=== PATIENT | female | born 1975 | race Caucasian/White ===

== ENCOUNTER → 2017-05-20 | Outpatient (CLI) | payer BC ==
[~2017-05-20] MED LIST: ASACOL400 MG PO; HYDROCODONE BIT1 T11 PO; NORFLEX100 MG PO; SINGULAIR10 MG PO; SYNTHROID0.1 MG PO; VENTOLIN0.09 MG/AC IH; ZITHROMAX Z PA250 MG PO
[2017-05-20 09:36] LABS: BILIRUBIN NEGATIVE (NEGATIVE); BLOOD 3+ (NEGATIVE); CLARITY SL CLOUDY (CLEAR); COLOR YELLOW (YELLOW); GLUCOSE NEGATIVE (NEGATIVE); KETONE NEGATIVE (NEGATIVE); LEUKO ESTERASE 1+ (NEGATIVE); NITRITE NEGATIVE (NEGATIVE); SPECIFIC GRAVITY <= 1.005 (1.005-1.030); UROBILINOGEN 0.2 E.U./dl (0.2-1.0)
[2017-05-20 10:31] LABS: BACTERIA 2+
== END | disposition home or self-care (01) ==
LOC: LAB 09:15
PROVIDERS: Nurse Practitioner
DX: N20.0 Calculus of kidney (principal)

== ENCOUNTER 2018-02-03 09:01 | Inpatient (IN) | payer BC ==
[~2018-02-03] VITALS: Ht 165.1 cm; Wt 80.9 kg
--- NOTE | ~2018-02-03 | CON ---
[place], [place] REPORT OF CONSULTATION NAME: PRECIOUS JUAREZ UNIT #: [id number] ROOM: 516 DOCTOR: CARMEN LANGLEY MD BIRTHDATE: [birth year] DOS: 02/04/2018 CARDIOLOGY PROGRESS NOTE SUBJECTIVE: The patient was seen today 02/04/2018 in the Cardiology Department just prior to her stress test. She continues to have brief episodes of chest discomfort, but denies any diaphoresis. Review of her laboratory studies showed that her TSH levels are elevated at 25.8. Troponins remain negative. PHYSICAL EXAMINATION: VITAL SIGNS: Today, her pulse is 77 and regular, blood pressure is 102/70. She is afebrile, body mass index is 29.7, and she weighs 80.8 kilograms. NECK: Supple. She has no jugular distention. Carotids are full. LUNGS: Respirations are unlabored. CHEST: Clear. HEART: Has a regular rhythm with an S4 gallop. EXTREMITIES: Showed no edema. IMPRESSION: 1. Atypical chest pain. 2. Episodic diaphoresis. 3. Hypothyroidism with elevated TSH level indicating that she is incompletely replaced. PLAN: We will proceed with an exercise myocardial perfusion study today. I will defer further management of her thyroid replacement to her primary physicians. Certainly, better replacement of her thyroid will aid in her cholesterol control, weight management, etc. I thank the hospitalist physicians for asking our advice regarding her care. CARMEN LANGLEY MD CM:CONSTR:REPORT OF CONSULTATION 1012 02/16/18 0856 interface
--- NOTE | ~2018-02-03 | EKG ---
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
--- NOTE | ~2018-02-03 | EKG ---
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 Electronically Signed On 02-03-2018 21:01:43 PDT by Atrhur Wilhelm MD CM:EKGRPT:ELECTROCARDIOGRAM REPORT 1501 [id number] ROSA FIGUEROA DRAFT REPORT ROSA DOWNING MD
--- NOTE | ~2018-02-03 | EKG ---
[place], [place] ELECTROCARDIOGRAM REPORT NAME: PRECIOUS JUAREZ UNIT #: [id number] ROOM: 516 DOCTOR: CAROLINA DRAFT REPORT BIRTHDATE: [birth year] [facility] Test Date: 2018-02-03 Test Time: 12:43:37 Pat Name: PRECIOUS JUAREZ Department: Room: Gender: F Supervisor Properties: : 1975 Requested By: ROSA DOWNING Order Number: [id number] Reading MD: Arthur Wilhelm MD Measurements Intervals [place] Rate: 63 P: 0 CA: 163 QRS: 34 QRSD: 92 T: 3 QT: 415 QTc: 425 Interpretive Statements Sinus rhythm Nonspecific T abnormalities, anterior leads No change from earlier ECG this date. Electronically Signed On 02-03-2018 20:53:31 PDT by Arthur Wilhelm MD CM:EKGRPT:ELECTROCARDIOGRAM REPORT [id number] 52 ROSA FIGUEROA DRAFT REPORT ROSA DOWNING MD
--- NOTE | ~2018-02-03 | PR ---
[place], [place] PROGRESS NOTE NAME: [id number] UNIT #: [id number] ROOM: 516 DOCTOR: CARMEN LANGLEY MD BIRTHDATE: [birth year] DOS: 02/04/2018 CARDIOLOGY PROGRESS NOTE SUBJECTIVE: The patient was seen today 02/04/2018 in the Cardiology Department just prior to her stress test. She continues to have brief episodes of chest discomfort, but denies any diaphoresis. Review of her laboratory studies showed that her TSH levels are elevated at 25.8. Troponins remain negative. PHYSICAL EXAMINATION: VITAL SIGNS: Today, her pulse is 77 and regular, blood pressure is 102/70. She is afebrile, body mass index is 29.7, and she weighs 80.8 kilograms. NECK: Supple. She has no jugular distention. Carotids are full. LUNGS: Respirations are unlabored. CHEST: Clear. HEART: Has a regular rhythm with an S4 gallop. EXTREMITIES: Showed no edema. IMPRESSION: 1. Atypical chest pain. 2. Episodic diaphoresis. 3. Hypothyroidism with elevated TSH level indicating that she is incompletely replaced. PLAN: We will proceed with an exercise myocardial perfusion study today. I will defer further management of her thyroid replacement to her primary physicians. Certainly, better replacement of her thyroid will aid in her cholesterol control, weight management, etc. I thank the hospitalist physicians for asking our advice regarding her care. CARMEN LANGLEY MD CM:PNTRANS 1012 [id number] CARMEN LANGLEY MD 02/16/18 0858 COCO [email or web address]
[~2018-02-03 09:01] MED LIST changes: -SYNTHROID0.1 MG PO; +Synthroid,Lev150 MCG PO
[2018-02-03] MEDS ORDERED: LIALDA1.2 GM PO (09:04)
[2018-02-03 09:07] VITALS: BP 137/82
[2018-02-03 09:39] LABS: BASO % 0.3 % (0.0-1.0); EOS # 0.1 10*3/uL (0.0-0.4); EOS % 0.9 % (1.0-4.0); HEMATOCRIT 45.3 % (37.0-47.0); HEMOGLOBIN 14.9 g/dl (12.0-16.0); LYMPH # 2.3 10*3/uL (1.3-4.4); LYMPH % 22.1 % (27.0-41.0); MEAN CELL VOLUME 96.4 fl (81.0-99.0); MEAN CORPUSCULAR HGB 31.7 pg (27.0-31.0); MEAN CORPUSCULAR HGB CONC 32.9 g/dl (33.0-37.0); MEAN PLATELET VOLUME 9.6 fl (9.6-12.3); MONO # 0.6 10*3/uL (0.1-1.0); MONO % 5.7 % (3.0-9.0); NEUT # 7.5 10*3/uL (2.3-7.9); NEUT % 70.4 % (47.0-73.0); PLATELET COUNT AUTOMATED 236 10*3/uL (130-400); RED CELL DISTRI WIDTH 12.4 % (0-14.5); WHITE BLOOD COUNT 10.6 10*3/uL (4.8-10.8)
[2018-02-03 09:47] LABS: ACT PARTIAL THROMBO TIME 23.9 SECONDS (20.8-31.5); INTERNATIONAL NORM RATIO 0.9 (2.0-3.5)
[2018-02-03 09:59] LABS: ALBUMIN 3.8 gm/dl (3.1-4.5); BUN 12 mg/dl (7-24); CHLORIDE 104 mmol/L (98-107); CREATININE 0.96 mg/dL (0.55-1.02); SGOT/AST 18 IU/L (3-35); SGPT/ALT 26 U/L (12-78); SODIUM 137 mmol/L (136-145)
[2018-02-03 10:04] LABS: ALKALINE PHOSPHATASE 68 U/L (45-117); TOTAL PROTEIN 7.5 gm/dL (6.4-8.2); TROPONIN I < 0.015 ng/ml (<0.045)
[2018-02-03 10:14] VITALS: BP 133/82
[2018-02-03] MEDS ORDERED: IMODIUM A-D2 M2 PO (11:11)
[2018-02-03] MEDS ORDERED: VICODIN 5-3001 EACH PO (11:13)
[2018-02-03] MEDS ORDERED: ZANAFLEX4 MG PO (11:13)
[2018-02-03] MEDS ORDERED: ZANTAC 150150 MG PO (11:13)
[2018-02-03] MEDS ORDERED: XANAX0.5 MG PO (11:14)
[2018-02-03 12:00] VITALS: BP 114/80
[2018-02-03 16:00] VITALS: BP 121/79
[2018-02-03 20:00] VITALS: BP 113/69
[2018-02-04] VITALS: BP 116/77
[2018-02-04 07:34] LABS: BASO # 0.1 10*3/uL (0.0-0.1); BASO % 0.5 % (0.0-1.0); EOS # 0.2 10*3/uL (0.0-0.4); EOS % 1.5 % (1.0-4.0); HEMOGLOBIN 14.9 g/dl (12.0-16.0); LYMPH # 2.4 10*3/uL (1.3-4.4); MEAN CELL VOLUME 95.8 fl (81.0-99.0); MEAN CORPUSCULAR HGB CONC 32.4 g/dl (33.0-37.0); MEAN PLATELET VOLUME 10.3 fl (9.6-12.3); MONO # 0.6 10*3/uL (0.1-1.0); MONO % 5.7 % (3.0-9.0); NEUT # 6.8 10*3/uL (2.3-7.9); NEUT % 67.9 % (47.0-73.0); PLATELET COUNT AUTOMATED 180 10*3/uL (130-400); RED CELL DISTRI WIDTH 12.6 % (0-14.5)
[2018-02-04 08:00] VITALS: BP 102/70
[2018-02-04 08:01] LABS: ALBUMIN 3.7 gm/dl (3.1-4.5); BUN 13 mg/dl (7-24); CHLORIDE 104 mmol/L (98-107); POTASSIUM 3.6 mmol/L (3.5-5.1); SODIUM 140 mmol/L (136-145)
[2018-02-04 08:09] LABS: ALKALINE PHOSPHATASE 62 U/L (45-117); CHOLESTEROL 227 mg/dL (<200); CREATININE 0.93 mg/dL (0.55-1.02); FREE T4 0.72 ng/dl (0.76-1.46); HDL CHOLESTEROL 50 mg/dl (40-60); LDL CHOLESTEROL 116 mg/dL (9-159); PHOSPHOROUS 3.1 mg/dL (2.5-4.9); SGOT/AST 20 IU/L (3-35); SGPT/ALT 27 U/L (12-78); TOTAL PROTEIN 7.3 gm/dL (6.4-8.2); TRIGLYCERIDES 305 mg/dl (<150); VLDL CHOLESTEROL 61 mg/dL (6-40)
[2018-02-04 08:44] VITALS: BP 110/68
[2018-02-04 08:49] LABS: VITAMIN D, 25-HYDROXY 18.8 ng/mL (30-100)
[2018-02-04 12:00] VITALS: BP 107/71
[2018-02-04] MEDS ORDERED: VITAMIN D-32000 UNIT PO (14:44)
[2018-02-04] MEDS ORDERED: SYNTHROID,LEV175 MCG PO (14:48)
== END 2018-02-04 15:25 | disposition home or self-care (01) | DRG 194 ==
LOC: ED 09:01 → 5E 10:15
PROVIDERS: Emergency Medicine; Registered Nurse
PROC: 4A02XM4 Measurement of Cardiac Total Activity, External Approach (ICD-10-PCS; principal; 2018-02-04)
DX: R09.1 Pleurisy (principal); K51.919 Ulcerative colitis, unspecified with unspecified complications; E03.9 Hypothyroidism, unspecified; F41.9 Anxiety disorder, unspecified; K21.9 Gastro-esophageal reflux disease without esophagitis; R61 Generalized hyperhidrosis; J45.909 Unspecified asthma, uncomplicated; Z79.899 Other long term (current) drug therapy; Z71.6 Tobacco abuse counseling; Z72.0 Tobacco use; Z88.0 Allergy status to penicillin; Z88.2 Allergy status to sulfonamides; Z80.1 Family history of malignant neoplasm of trachea, bronchus and lung

== ENCOUNTER → 2020-09-05 | Outpatient (CLI) | payer BC ==
[~2020-09-05] MED LIST changes: +IMODIUM A-D2 M2 PO; +LIALDA1.2 GM PO; +SYNTHROID,LEV175 MCG PO; +VICODIN 5-3001 EACH PO; +VITAMIN D-32000 UNIT PO; +XANAX0.5 MG PO; +ZANAFLEX4 MG PO; +ZANTAC 150150 MG PO
[2020-09-05 08:18] LABS: ALBUMIN 3.7 gm/dl (3.1-4.5); BUN 13 mg/dl (7-24); CHLORIDE 109 mmol/L (98-107); CHOLESTEROL 203 mg/dL (<200); CREATININE 0.88 mg/dL (0.55-1.02); POTASSIUM 3.8 mmol/L (3.5-5.1); SGOT/AST 12 IU/L (3-35); SGPT/ALT 25 U/L (12-78); SODIUM 140 mmol/L (136-145); THYROXINE (T4) TOTAL 10.7 ug/dl (4.8-13.9); TOTAL PROTEIN 7.4 gm/dL (6.4-8.2); TRIGLYCERIDES 229 mg/dl (<150); VLDL CHOLESTEROL 46 mg/dL (6-40)
[2020-09-05 08:27] LABS: ALKALINE PHOSPHATASE 65 U/L (45-117); HDL CHOLESTEROL 43 mg/dl (40-60); LDL CHOLESTEROL 114 mg/dL (9-159)
[2020-09-05 09:15] LABS: HEMATOCRIT 45.3 % (37.0-47.0); MEAN CELL VOLUME 94.6 fl (81.0-99.0); MEAN CORPUSCULAR HGB 30.7 pg (27.0-31.0); MEAN CORPUSCULAR HGB CONC 32.5 g/dl (33.0-37.0); MEAN PLATELET VOLUME 11.4 fl (9.6-12.3); RED BLOOD COUNT 4.79 10*6/uL (4.10-5.10); RED CELL DISTRI WIDTH 11.8 % (0-14.5); WHITE BLOOD COUNT 8.9 10*3/uL (4.8-10.8)
[2020-09-05 09:20] LABS: PLATELET COUNT AUTOMATED 232 10*3/uL (130-400)
[2020-09-05 09:55] LABS: BASOPHILS 1 % (0-1); PLATELET SUFFICIENCY NORMAL (NORMAL); TOTAL CELLS COUNTED 100 #CELLS
== END | disposition home or self-care (01) ==
LOC: LAB 07:13
PROVIDERS: ATTEND Family Medicine
DX: K51.90 Ulcerative colitis, unspecified, without complications (principal); K51.00 Ulcerative (chronic) pancolitis without complications; E03.8 Other specified hypothyroidism; E78.2 Mixed hyperlipidemia

== ENCOUNTER → 2020-09-15 | Outpatient (CLI) | payer BC | END | disposition home or self-care (01) | LOC: COVID19 09:41 | PROVIDERS: ATTEND Emergency Medicine | DX: Z20.822 Contact with and (suspected) exposure to COVID-19 (principal) ==

== ENCOUNTER → 2021-06-03 | Outpatient (CLI) | payer BC | END | disposition home or self-care (01) | LOC: COVID19 15:36 | PROVIDERS: ATTEND Internal Medicine | DX: Z11.52 Encounter for screening for COVID-19 (principal) ==

== ENCOUNTER → 2022-06-28 | Outpatient (CLI) | payer BC ==
[2022-06-28 08:52] LABS: ALKALINE PHOSPHATASE 53 U/L (46-116); BUN 17 mg/dl (9-23); CHLORIDE 105 mmol/L (98-107); CHOLESTEROL 182 mg/dL (<200); CREATININE 0.72 mg/dL (0.55-1.02); FREE T4 1.81 ng/dl (0.89-1.76); LDL CHOLESTEROL 98 mg/dL (9-159); POTASSIUM 3.9 mmol/L (3.4-5.1); SGPT/ALT 23 U/L (10-49); SODIUM 139 mmol/L (136-145); THYROID STIM HORMONE (HS) 0.429 uIU/ml (0.550-4.780); TRIGLYCERIDES 197 mg/dl (<150)
[2022-06-28 09:42] LABS: HEMATOCRIT 42.2 % (37.0-47.0); MEAN CORPUSCULAR HGB 31.4 pg (27.0-31.0); MEAN CORPUSCULAR HGB CONC 33.4 g/dl (33.0-37.0); MEAN PLATELET VOLUME 11.1 fl (9.6-12.3); RED BLOOD COUNT 4.49 10*6/uL (4.10-5.10); RED CELL DISTRI WIDTH 11.4 % (0-14.5); WHITE BLOOD COUNT 7.4 10*3/uL (4.8-10.8)
[2022-06-28 09:43] LABS: MANUAL DIFF REFLEX YES; PLATELET COUNT AUTOMATED 266 10*3/uL (130-400)
[2022-06-28 10:16] LABS: ATYPICAL LYMPHS 5 % (0-0); TOTAL CELLS COUNTED 100 #CELLS
[2022-06-28 10:17] LABS: PLATELET SUFFICIENCY NORMAL (NORMAL); POLYCHROMASIA SLIGHT
[2022-06-29 09:06] LABS: HEPATITIS B SURFACE AB Reactive (.); HEPATITIS B SURFACE AG Negative (Negative); HEPATITIS Be ANTIGEN Negative (Negative)
[2022-07-01 09:07] LABS: TB1 Ag VALUE 0.01 IU/mL (.)
== END | disposition home or self-care (01) ==
LOC: LAB 02:50
PROVIDERS: ATTEND Internal Medicine Gastroenterology
DX: E78.2 Mixed hyperlipidemia (principal); E03.8 Other specified hypothyroidism; K51.90 Ulcerative colitis, unspecified, without complications; R31.9 Hematuria, unspecified; R10.9 Unspecified abdominal pain; R19.7 Diarrhea, unspecified; R53.83 Other fatigue; Z68.32 Body mass index [BMI] 32.0-32.9, adult

== ENCOUNTER 2025-02-09 08:39 | Emergency (ER) | payer OTHER, BC ==
[~2025-02-09] VITALS: Ht 167.6 cm; Wt 81.6 kg
[2025-02-09 08:40] VITALS: BP 110/68
[2025-02-09] MEDS ORDERED: diphenhydrAMINE hydrochloride 50 MG/ML VIAL IM ONE (08:45)
[2025-02-09] MEDS ORDERED: PREDNISONE50 MG PO (09:07)
[2025-02-09] MEDS ORDERED: VIBRAMYCIN100 MG PO (09:07)
== END 2025-02-09 09:15 | disposition home or self-care (01) ==
LOC: ED 08:39
DX: K13.0 Diseases of lips (principal); F17.200 Nicotine dependence, unspecified, uncomplicated; Z88.2 Allergy status to sulfonamides; Z88.0 Allergy status to penicillin; Z79.899 Other long term (current) drug therapy

== ENCOUNTER → 2025-04-08 | Outpatient (CLI) | payer OTHER, BC ==
[~2025-04-08] MED LIST changes: +PREDNISONE50 MG PO; +VIBRAMYCIN100 MG PO
[2025-04-08 08:17] LABS: BUN 14 mg/dl (9-23); LDL CHOLESTEROL 108 mg/dL (9-159); SGPT/ALT 17 U/L (5-49)
[2025-04-08 08:33] LABS: FREE T4 1.61 ng/dl (0.89-1.76)
[2025-04-08 09:11] LABS: MEAN CELL VOLUME 94.5 fl (81.0-99.0); MEAN CORPUSCULAR HGB 30.4 pg (27.0-31.0); MEAN PLATELET VOLUME 11.2 fl (9.6-12.3); NUCLEATED RED BLOOD CELL 0.0 % (0.0-0.0); NUCLEATED RED BLOOD CELL 0.0 10*3/uL (0.0-0.0); RED CELL DISTRI WIDTH 12.4 % (0-14.5)
[2025-04-08 10:07] LABS: MANUAL DIFF REFLEX YES; PLATELET COUNT AUTOMATED 198 10*3/uL (130-400)
[2025-04-08 10:45] LABS: PLATELET SUFFICIENCY NORMAL (NORMAL)
== END | disposition home or self-care (01) ==
LOC: LAB 06:52
PROVIDERS: ATTEND Internal Medicine
DX: E03.9 Hypothyroidism, unspecified (principal)